=== PATIENT | female | born 1960 | race Caucasian/White ===

== ENCOUNTER 2019-12-11 12:47 | Outpatient (AMBR) | payer MEDICAID, SELFPAY ==
--- NOTE | 2019-12-11 18:26 | PT.ODAYNRPT ---
PT Outpatient Daily Note Date of Service: 12/11/19 OP Daily Note Visit Reasons: low back pain Outpatient Physical Therapy Treatment Date: 12/11/19 Assessment: Pt arrived and was registered but then became nervous and left therapy. Wasn't evaluated. No charges
== END 2019-12-13 23:59 | disposition home or self-care (01) ==
PROVIDERS: PCP Registered Nurse; Referring Provider Registered Nurse; Visit Provider Anesthesiology
DX: M54.5 Low back pain (principal)

== ENCOUNTER 2024-05-14 12:46 | Emergency (ER) | payer MEDICAID, SELFPAY ==
[2024-05-14 13:08] VITALS: BP 153/101; BP 165/105; PULSE 94; RESP 20; TEMP 37.1; O2SAT 95; BMI 47.8
[2024-05-14] MEDS: ONDANSETRON ODT 4 MG TABRAP PO (13:52)
--- NOTE | 2024-05-14 13:54 | EDNOTE_ITS ---
Nausea/Vomit./Diarrhea-RME/HPI General Chief complaint: Nausea/Vomiting/Diarrhea Stated complaint: Vomiting X 2 days, fever Time Seen by Provider: 05/14/24 12:54 Arrival date/time: 05/14/24 12:46 64-year-old female with history of hypertension, hypothyroid, COPD presents to the emergency department today stating she has had vomiting and generalized bodyaches for last 2 days patient is here with who is also sick Limitations: no limitations Related Data Home Medications ?Medication ?Instructions ?Recorded ?Confirmed docusate sodium 250 mg capsule 250 mg PO BID ##0 01/02/13 02/27/20 albuterol sulfate 90 mcg/actuation 2 puff inhalation Q6HR PRN 04/26/16 02/27/20 aerosol inhaler (ProAir HFA) RESPIRATORY DISTRESS #0 inhalations levothyroxine 125 mcg tablet 125 mcg PO QDAY #0 tabs 04/26/16 02/27/20 temazepam 30 mg capsule (Restoril) 30 mg PO HS PRN SLEEPLESSNESS #0 04/26/16 02/27/20 caps trazodone 100 mg tablet 200 mg PO QDAY #0 tabs 04/26/16 02/27/20 metoprolol tartrate 25 mg tablet 25 mg PO BID #0 tabs 04/27/16 02/27/20 montelukast 10 mg tablet 10 mg PO HS #0 tabs 02/05/17 02/27/20 (Singulair) linaclotide 145 mcg capsule 145 mcg PO QDAY 11/13/18 02/27/20 (Linzess) nabumetone 500 mg tablet 500 mg PO QDAY 11/13/18 02/27/20 oxycodone 10 mg tablet 15 mg PO QID Arthritis 11/13/18 02/27/20 pantoprazole 40 mg tablet,delayed 40 mg PO QDAY 11/13/18 02/27/20 release (Protonix) estradiol 0.01% (0.1 mg/gram) 2 g vaginal DIRECTED 02/27/20 02/27/20 vaginal cream (Estrace) fesoterodine 4 mg tablet,extended 4 mg PO QDAY 02/27/20 02/27/20 release 24 hr (Toviaz) Previous Rx's ?Medication ?Instructions ?Recorded hydralazine 25 mg tablet 25 mg PO TID #90 tabs 02/19/24 lactulose 10 gram oral packet 10 g PO BID PRN constipation #15 ea 02/19/24 benzonatate 100 mg capsule 100 mg PO TID #14 caps 05/14/24 ibuprofen 800 mg tablet 800 mg PO TID PRN pain #30 tabs 05/14/24 ondansetron 4 mg disintegrating 4 mg PO Q6H PRN nausea and 05/14/24 tablet vomiting #14 tabs Allergies Allergy/AdvReac Type Severity Reaction Status Date / Time latex Allergy Intermediate RASH Verified 02/16/24 08:11 adhesive tape AdvReac Severe TEARS SKIN Verified 02/16/24 08:11 Review of Systems Review of Systems Systems Reviewed: All systems reviewed, normal except as documented Constitutional Constitutional: Reports system reviewed and no additional complaints, except as documented, Reports body ache(s), Reports chills, Reports fever(s) and Reports headache(s) Eyes Eyes: Reports system reviewed and no additional complaints, except as documented and Denies blurry vision ENT Ears, Nose, Mouth, and Throat: Reports system reviewed and no additional complaints, except as documented, Reports headache(s), Reports nasal congestion and Reports nasal discharge Cardiovascular Cardiovascular: Reports system reviewed and no additional complaints, except as documented, Denies chest pain and Denies dyspnea Respiratory Respiratory: Reports system reviewed and no additional complaints, except as documented, Reports chest congestion, Denies cough and Denies dyspnea Gastrointestinal Gastrointestinal: Reports system reviewed and no additional complaints, except as documented, Denies abdominal pain, Reports loose stools, Reports nausea and Reports vomiting Integumentary/Breasts Skin/Breast: Reports system reviewed and no additional complaints, except as documented and Denies rash Neurologic Neurologic: Reports system reviewed and no additional complaints, except as documented, Reports as per HPI and Reports headache(s) Past Medical History Past Medical History NEUROLOGIC: Negative Seizures CARDIAC: Positive Atrial Fibrillation, Hypercholesterolemia, Deep Vein Thrombosis and Hypertension; Negative Cardiac Disorders or Congestive Heart Failure RESPIRATORY: Positive Chronic Obstructive Pulmonary Disease (COPD), Asthma, Emphysema, Pneumonia and Sleep Apnea GASTROINTESTINAL: Positive Diverticulosis, Hiatal Hernia, Hemorrhoids and Obesity GENITOURINARY: Positive Kidney Stones; Negative Renal Disease REPRODUCTIVE: Positive Previous Pregnancies MUSCULOSKELETAL: Positive Arthritis, Fibromyalgia and Degenerative Joint Disease ENDOCRINE: Positive Diabetes Mellitus Type 2 and Hypothyroidism; Negative Diabetes Mellitus Type 1 HEMATOLOGIC: Negative Sickle Cell Disease PSYCHO/SOCIAL: Positive Bipolar Disorder, Depression and Anxiety OTHER HISTORY: Positive MRSA; Negative Autoimmune Disease, Blood Transfusions, Blood Transfusion Reaction or Anesthesia Reactions Family History FAMILY HISTORY: Positive Family Respiratory Disorders (parents), Family Cardiac Disorders, Family Gastrointestinal Problems (sister had cn in bowels), Family Cancer (cn in the bowels), Family Surgery (mother had heart surgery) and Family Anesthesia Reaction (mother had confusion post anesthesia); Negative Family Psychiatric Problems Surgical History SURGICAL: Positive Hysterectomy and Section Social History SMOKING STATUS: Former smoker SUBSTANCE USE: does not use ED Exam General Limitations: Present no limitations General appearance: Present alert and in no apparent distress Head Head exam: Present atraumatic Eye Eye exam: Present normal appearance, PERRL and EOMI; Absent conjunctival injection ENT ENT exam: Present normal exam, normal oropharynx and mucous membranes moist Neck Neck exam: Present normal inspection, full ROM and trachea midline Chest Chest inspection: Present normal inspection and symmetric chest wall rise Respiratory Respiratory exam: Present normal lung sounds bilaterally; Absent respiratory distress Cardiovascular Cardiovascular exam: Present regular rate, normal rhythm and normal heart sounds Abdominal Exam Abdominal exam: Present soft and normal bowel sounds; Absent distention, tenderness, guarding, rebound or rigidity Extremities Exam Extremities exam: Present normal inspection and full ROM Back Exam Back exam: Present normal inspection and full ROM Neurological Exam Neurological exam: Present alert, oriented X3 and CN II-XII intact Psychiatric Psychiatric exam: Present normal affect and normal mood Skin Skin exam: Present warm, dry, intact and normal color Course Quality Measures none Orders Category Date Time Status Bedside Influenza A&B Antigen Test NOW Care 05/14/24 13:53 Completed Ondansetron Odt [Zofran Odt] Med 05/14/24 13:48 Discontinued 4 mg PO X1 ONE Vital Signs Vital signs: Vital Signs Temperature 98.7 F 05/14/24 13:08 Pulse Rate 94 05/14/24 13:08 Respiratory Rate 20 05/14/24 13:08 Blood Pressure 165/105 H 05/14/24 13:08 Pulse Oximetry (%) 95 05/14/24 13:08 Oxygen Delivery Method Room Air 05/14/24 13:08 O2 saturation 95% room air within normal limits Nausea/Vomiting/Diarrhea MDM Narrative MDM Narrative:: 64-year-old female with history of hypertension, hypothyroid, COPD presents to the emergency department today stating she has had vomiting and generalized bodyaches for last 2 days patient is here with who is also sick On exam patient hemodynamically stable patient does not appear ill or toxic and in no acute distress Patient checked for the flu which came back positive which is consistent with patient's symptoms Patient is no tachypnea or dyspnea no increased work of breathing Patient medicated here and discharged home with meds I did explain to the patient that should he worsens for any reason she must return for further evaluation and treatment patient states understanding is amenable to this plan Patient data External records reviewed:: [facility] previous records Clinical information provided by:: patient Social determinants that could affect healthcare access:: none Patient has the following chronic illnesses:: See history How is presenting disease/condition affected by chronic disease/condition?: exacerbated by Evaluation data The following diagnostics were reviewed and interpreted by me:: lab results Lab and/or radiology exams considered but not ordered:: Labs obtained Interpretation Summary: Reviewed by me Medications / Prescriptions Medications / Prescriptions considered but not ordered:: Given Medication administrations:: Medication Administration History Discontinued Medications Ondansetron HCl (Ondansetron Odt 4 Mg Tabrap) 4 mg PO X1 ONE; Protocol Stop: 05/14/24 13:49 Last Admin: 05/14/24 13:52 Dose: 4 mg Documented By: VG Given Consultations Consultation(s) initiated? (list below): No Diagnosis Nausea Differential Diagnosis: traveler's diarrhea, gastroenteritis and other (Viral illness) Most likely diagnosis given after review of the tests above:: Viral illness Admission Indicated Admission indicated?: not indicated Admission Request Was there a request for admission?: No Disposition Plan Disposition Plan: Discharge Discharge Attestation Discharge Attestation: The patient and all family members were given an opportunity to ask questions and understood the discharge instructions. Discharge instructions specifically effects, indications for sooner follow up or return to the emergency department, and the expected course of current diagnosis. Patient condition: Stable Discharge Plan Plan Patient Disposition: HOME (Self Care) Disposition Comment: Stable Prescriptions/Referrals Prescriptions/Med Rec: New ibuprofen 800 mg tablet 800 mg PO TID PRN (Reason: pain) Qty: 30 0RF benzonatate 100 mg capsule 100 mg PO TID Qty: 14 0RF ondansetron 4 mg tablet,disintegrating 4 mg PO Q6H PRN (Reason: nausea and vomiting) Qty: 14 0RF No Action estradiol [Estrace] 0.01 % (0.1 mg/gram) cream 2 g vaginal DIRECTED Rx Instructions: twice a week Toviaz 4 mg tablet extended release 24 hr 4 mg PO QDAY docusate sodium 250 MG capsule 250 mg PO BID Qty: 0 trazodone 100 mg Tablet 200 mg PO QDAY Qty: 0 temazepam [Restoril] 30 MG capsule 30 mg PO HS PRN (Reason: SLEEPLESSNESS) Qty: 0 levothyroxine 125 mcg Tablet 125 mcg PO QDAY Qty: 0 albuterol sulfate [ProAir HFA] 8.5 GM HFA aerosol inhaler 2 puff Inhalation Q6HR PRN (Reason: RESPIRATORY DISTRESS) Qty: 0 metoprolol tartrate 25 MG tablet 25 mg PO BID Qty: 0 montelukast [Singulair] 10 MG tablet 10 mg PO HS Qty: 0 pantoprazole [Protonix] 40 mg Tablet,Delayed Release (Dr/Ec) 40 mg PO QDAY nabumetone 500 mg Tablet 500 mg PO QDAY oxycodone 10 mg Tablet 15 mg PO QID Linzess 145 mcg Capsule 145 mcg PO QDAY hydralazine 25 mg tablet 25 mg PO TID Qty: 90 0RF lactulose 10 gram packet 10 g PO BID PRN (Reason: constipation) Qty: 15 0RF Referrals: Anna Cody FNP [Primary Care Provider] - In 1 week Problem List Clinical Impression: Influenza A Patient/Caregiver Discharge Instructions Education Materials: The Flu (Influenza) Additional Instructions: Please follow up with your primary care doctor in the next 24-48hrs for any worsening symptoms return here immediately Print Language: Mosotho Stand Alone Forms: Yazmin Award Info., Patient Portal Info Letter PA/[employer] HELPER Supervising Physician EDE/[employer] HEL[employer] Supervising Physician: Dr. [email or web address]
[2024-05-14 14:08] VITALS: BP 135/80
== END 2024-05-14 14:09 | disposition home or self-care (01) ==
PROVIDERS: Emergency Provider Emergency Medicine; PCP Nurse Practitioner
DX: J10.1 Influenza due to other identified influenza virus with other respiratory manifestations (principal); E03.9 Hypothyroidism, unspecified; I10 Essential (primary) hypertension; J44.9 Chronic obstructive pulmonary disease, unspecified
CPT/HCPCS: 87400; 99283; Q0162